=== PATIENT | male | born 1970 | race Caucasian/White ===

== ENCOUNTER → 2016-06-14 | Outpatient (CLI) | payer BC ==
[~2016-06-14] MED LIST: Carafate PO; PRLSR20 PO; VLT500 PO
--- NOTE | 2016-06-15 05:50 | PAP/PSG TECHNICIAN REPORT ---
[facility] [employer] Ride F[employer] Collector Polysomnogram Report Study name: None Report date: 06/15/2016 Study date: 06/14/2016 Referring Physician: Nithya Jeffrey M.D. Name: GRACE OLSON Marcos Interpreting Physician: Naz Jeffrey M.D. Date of : 1970 Second Ride Fare Collector: CARLOS Kumar. Sex: Male Age: 45 StudyType: PSG PAP Weight: 281 lbs Height: 45 years, Height 6' 1" Neck Circum: 18.5inches BMI: 37.07 Medications: Lexapro 10mg Patient History Study started on room air with CPAP +7 (he wanted to start higher because at home he starts at 5 and he said he feels it is too low) in room #8. 45 yr old male here tonight for a new titration study. He had a HST that had an DANNY of 34.9. He has been using auto CPAP at home for 30 days with a nasal mask. His ESS=13/24. Neck circ=18.5inches. Parameters Monitored NPSG: E1-M2, E2-M1, Fp1-M2, Fp2-M1, F3-M2, F4-M2, F4-M1, C3-M2, C4-M2, C4-M1, O1-M2, O2-M2, O2-M1, T3-M2, T4-M1, P3-M2, P4-M1, CHIN1, CHIN2, HR, EKG, Legs, PFLOW, SNOR, FLOW, CFLOW, Tidal Volume, THOR, ABDO, SpO2, PLTH, CPRESS, ETCO2 Wave, ETCO2, pH Sleep Architecture Sleep Stages Time at Lights Off 10:15:30 PM STAGES Time (min.) TST (%) Time at Lights On 5:30:30 AM Wake 146.5 -- Total Recording Time (TRT) 435.00 min. N1 30.0 10 Total Sleep Period (TSP) 379.0 min. N2 129.5 45 Total Sleep Time (TST) 288.5min. N3 61.0 21 Awake Time 146.5 min. REM 68.0 24 Wake after Sleep Onset 90.5 min. Sleep Efficiency (SE) 66 % Sleep Onset Latency (KATELIN) 56.0 min. Number of Stage 1 Shifts None Awakenings 25 Stage Changes 99 Number of REM periods 11 REM 68.0 24 REM Latency 197.5 min. NREM 220.5 76 Body Position Analysis Supine Right Left Side Prone Vertical Total Sleep Time (min.) 105.9 153.9 85.0 238.88 0.0 0.0 Total Sleep Time (%) 17% 53% 29% 83 0% N/A% Total Sleep Time REM (min.) 22.5 44.5 1.0 None 0.0 0.0 Total Sleep Time NREM (min.) 27.1 109.4 84.0 None 0.0 0.0 Intermittent Wake (min.) 56.3 50.7 39.5 None 0.0 0.0 Total Sleep Period (%) 23% None None None None None Arousals Myoclonus (PLM) * Events Count Index Events Count Index Spontaneous 17 4 Events Awake (PLMW) 234 95.8 Respiratory 5 1.5 Events Asleep w/ Arousal (PLMA) 18 3.7 PLM 17 4 Events Asleep w/o Arousal (PLMS) 89 18.5 Snoring 6 1 Total Asleep 107 22.3 Total 45 9 Total 341 47 Respiratory Analysis * CA OA MA CH H RERA Total Count 0 0 0 0 23 0 23 Index 0.0 0.0 0.0 0 4.8 0 4.8 Mean Duration 0.0 0.0 0.0 0.00 23.6 0.0 23.6 Longest Duration 0.0 0.0 0.0 0.00 0.0 0.0 50.4 Respiratory Event Summary Total Supine ~Supine Right Left Prone REM NREM Apneas Count 0 0 0 0 0 N/A 0 0 Index 0.0 0 0 0.0 0.0 N/A 0 0 Hypopneas (4% Desat) Count 23 14 9 8 1 N/A 9 14 Index 4.8 16.9 2 3.1 0.7 N/A 7.9 3.8 Apneas & All Hypopneas Count 23 14 9 8 1 N/A 9 14 Index 4.8 17 2 3 1 N/A 7.9 3.8 Respiratory Events (Barking Machine Feeder+All Hyp+RERA) Count 23 14 9 8 1 N/A 9 14 Index 4.8 17 2 3.1 0.7 N/A 7.9 3.8 Respiratory Related Arousal Count 5 14 4 4 0 N/A 2 5 Index 1.5 4 1 2 0 N/A 2 1 Snoring Analysis Supine Right Left Prone REM NREM Total Snore duration 2.9 min Snores count 52 51 8 N/A 7 104 111 Snore mean duration 1.6 Sec Snores index 63 20 6 N/A 6.2 28.3 23.1 TST with snoring (%) 1.0% Desaturation Event Summary: Minimum %SpO2 Event Count Mean/Min/Max Duration(sec.) Desaturation Index % Time In Bed > 90 82 22.2 / 6.8 / 53.3 11.5 98.4 86 - 90 1 14.8 / 14.8 / 14.8 8.8 1.6 81 - 85 0 N/A 0.0 0.0 76 - 80 0 N/A 0.0 0.0 71 - 75 0 N/A 0.0 0.0 66 - 70 0 N/A 0.0 0.0 61 - 65 0 N/A 0.0 0.0 56 - 60 0 N/A 0.0 0.0 51 - 55 0 N/A 0.0 0.0 < 50 0 N/A 0.0 0.0 Total REM NREM Awake <50% 0.0 min. 0.0 min. 0.0 min. 0.0 min. 51 - 60% 0.0 min. 0.0 min. 0.0 min. 0.0 min. 61 - 70% 0.0 min. 0.0 min. 0.0 min. 0.0 min. 71 - 80% 0.0 min. 0.0 min. 0.0 min. 0.0 min. 81 - 90% 6.8 min. 2.3 min. 2.2 min. 2.3 min. 91 - 100% 427.0 min. 65.7 min. 218.3 min. 143.0 min. Average 94 94 94 94 Minimum SpO2 87 89 87 88 Desaturation Event Index 11.3 8.8 5.7 20.9 # Desat. Events below 89% 6 N/A 3 3 Time(%) with Saturation below 89% 0.2 0.0 0.1 0.0 Time(min.) with Saturation below 89% 0.7 0.0 0.5 0.1 Time (mins) REM (mins) NREM (mins) % of TST SpO2 Below 90% 17 7 N10 0.5 SpO2 Below 88% 1 0 0 0 Heart Rate Analysis Min (bpm) Max (bpm) Average (bpm) Awake 45 127 61 NREM 44 75 57 REM 45 69 56 Overall 44 75 57 Supplemental O2 Values Minimum O2 level: None Value Start Time End Time Second Ride Fare Collector Comments Mr. Olson slept in the right, left and supine positions. Cardiac arrhythmia and PLM's were noted, please see print outs. His restless legs were bothering him so much that at 12:20am he took an OTC RLS medication that he had with him. No bruxism noted. CPAP was initiated at +7 CMH2O and up-titrated to an optimal level of +04HAA2F, which nearly eliminated all respiratory events and snoring. He did however have a long REM period at the end of the study and the leak was high and mouth breathing was audible. His own Mirage FX nasal mask was used during titration but he was given and encouraged to try a medium Quattro Air full face mask by [employer]. He did not use the restroom during the night. He stated that he slept worse than when at home. The final report will be interpreted and signed by a sleep physician. The completed physician report will then be placed in the patient medical record. Therapy Event: Therapy (cm H20) 7 8 9 10 Total Time at Pressure (min.) 158.9 88.8 14.0 173.4 TST at Pressure (min.) 37.9 81.3 12.5 156.9 # Periods 1 1 1 1 Sleep Onset (min.) 56.0 0.0 0.0 0.0 REM Onset (min.) N/A N/A 5.9 0.4 Sleep Efficiency % 23 91 89 90 Wakefulness (%) 76.2 8.4 10.7 9.5 Wakefulness (min.) 121.0 7.5 1.5 16.5 NREM 1 (%) 5.9 9.2 15.2 6.0 NREM 1 (min.) 9.4 8.1 2.1 10.4 NREM 2 (%) 13.5 48.0 24.1 35.8 NREM 2 (min.) 21.5 42.6 3.4 62.0 NREM 3 (%) 4.4 34.4 0.0 13.6 NREM 3 (min.) 7.0 30.5 0.0 23.5 REM (%) 0.0 0.0 50.0 35.2 REM (min.) 0.0 0.0 7.0 61.0 # Arousals 18 10 2 15 Arousal Index 28.5 7.4 9.6 5.7 # Snore 31 50 12 18 Snore Index 49.1 36.9 57.6 6.9 AHI 6.3 5.2 24.0 2.7 AHI Supine 0.0 33.5 24.0 4.9 AHI Non-Supine 6.4 0.0 N/A 2.3 NREM AHI 6.3 5.2 21.8 0.6 REM AHI N/A N/A 25.7 5.9 RDI 6.3 5.2 24.0 2.7 # Obstructive 0 0 0 0 # Central Ap 0 0 0 0 # Mixed 0 0 0 0 # Hypopneas 4 7 5 7 RERAS 0 0 0 0 Total Respiratory Events 4 7 5 7 Time Below SpO2 89.00% (min.) 0.0 0.5 0.0 0.0 Mean NREM SpO2 (%) 94 93 93 94 Mean REM SpO2 (%) N/A N/A 92 94 Mean Sleep SpO2 (%) 94 93 93 94 Min NREM SpO2 (%) 90 87 90 90 Min REM SpO2 (%) N/A N/A 89 89 Position Supine (min.) 0.3 12.5 12.5 24.3 Position Non-supine (min.) 37.6 68.7 0.0 132.5 LM Index Sleep 84.0 11.1 24.0 13.0 LM Index NREM 84.0 11.1 43.7 2.5 LM Index REM N/A N/A 8.6 29.5 Mean Heart Rate (bpm) 62 59 61 55 Min Heart Rate (bpm) 52 50 53 44
--- NOTE | 2016-06-23 07:26 | POLYSOMNOGRAPH REPORT ---
CPAP TITRATION STUDY REFERRING PERSON: Dr. Jeffrey Jeffrey. [employer] OPERATOR: Amee Alcantara. Mr. Bauman is a 45-year-old male sent for CPAP titration study. He had a home sleep test which showed an DANNY of 34.9. He has been using an auto titrating CPAP at home, but he is sent to the lab to ensure adequate treatment of sleep disordered breathing and hypoxemia with therapy. His [place] sleepiness scale score on the evening of this study is 13. BMI is 37.07. Following the technical and digital specifications of the [place] [employer] (AASM) a standard diagnostic polysomnogram was performed monitoring EEG, EOG, EMG (chin and leg deviations), oxygen saturation, body position, digital video, respiratory effort and airflow. The sleep Stage and event scoring was based on the AASM Manual for the Scoring of Sleep and Associated Events 2007 edition. Apneas are defined as a drop in the peak thermal sensor excursion by >90% of baseline for at least 10 seconds. Hypopneas were scored using the 4% oxygen desaturation rule (4A-Medic[employer]) and a decrease in the nasal pressure excursions by >30% of baseline for at least 10 seconds. Respiratory effort-related arousal (RERA's) is defined as a sequence of breaths lasting at least 10 seconds characterized by increasing respiratory effort or flattening of the nasal pressure waveform leading to an arousal from sleep when the sequence of breaths does not meet criteria for an apnea or hypopnea. Apnea Hypopnea index (AHI) is defined as the number of apneas and hypopneas occurring in an hour of sleep. Respiratory disturbance index (RDI) is defined as the number of apneas, hypopneas, and RERA's occurring in an hour of sleep. Mr. Bauman's total sleep period time was 379 minutes. Total sleep time was 277.5 minutes. Sleep efficiency was 66%. Latency to sleep onset was 56 minutes with wake after sleep onset of 90.5 minutes. Total non-REM sleep time was 220.5 minutes. He spent 10% of that time in N1 sleep, 45% in N2 sleep and 21% in N3 sleep. REM latency was 197.5 minutes. Total REM sleep time was 68 minutes or 24% of total sleep time. There were 45 cortical arousals from sleep. Six of these arousals were due to snoring, 2017 due to periodic limb movements, 5 were due to respiratory events, and 17 were spontaneous. There were 107 periodic limb movements noted on this test. Limb movement index was 22.3. Limb movement with arousal index was 3.7. There were no central, obstructive or mixed apneas on this titration. There were 23 hypopnea. Apnea-hypopnea index was 4.8. 111 snoring events were recorded. Total sleep time with snoring was 1%. Mean saturation was 94%. Saturations were less than 89% for only 0.7 minutes of recorded time. There was no cardiac ectopy noted on this study. Very occasional PACs were noted. Heart rates ranged from a low of 44 beats per minute to a high of 75 beats per minute. As stated above, this was a CPAP titration study. This study was started on a CPAP pressure of 7 and he was titrated to a CPAP pressure of 10 over the course of the night. He did have a long period of REM toward the end of the study; however, leak was high. He was using his own Mirage FX nasal mask for the titration, but he was given and encouraged to try a medium Quattro Air full facemask by [facility] because of this. He was observed on a pressure of 10 for 156.9 minutes of sleep time. 61 of those minutes were spent in REM sleep and there was supine REM sleep. AHI and RDI on this pressure were both 2.7 and saturations were less than 89% for no sleep time. IMPRESSION AND PLAN: Successful CPAP titration study in this patient with known obstructive sleep apnea. I would recommend that he be started on CPAP at a pressure of 10. This eliminates his apnea as well as his nocturnal hypoxemia. He did have 107 periodic limb movements on this study; only 3.7 per hour resulted in arousals.
== END | disposition home or self-care (01) ==
LOC: C.NEUR 20:00
PROVIDERS: ATTEND Family Medicine
DX: G47.33 Obstructive sleep apnea (adult) (pediatric) (principal); R09.02 Hypoxemia

== ENCOUNTER 2017-06-14 06:57 | Day surgery (SDC) | payer BC ==
[2017-06-10 15:25] VITALS: BMI 37.0
[~2017-06-14] VITALS: Ht 185.4 cm; Wt 127.3 kg
[~2017-06-14 06:57] MED LIST changes: +CLINDAMYCIN IV 900 MG in DEXTROSE 5% 50ML 44 ML IV SCH; -Carafate PO; +ESCI1TAB10 PO; +IBUP-1050 PO; -PRLSR20 PO; -VLT500 PO
[2017-06-14 07:16] VITALS: BP 137/75; PULSE 70; TEMP 36.8; O2SAT 96; Ht 185.4 cm; Wt 127.3 kg
[2017-06-14] MEDS ORDERED: MIDAZOLAM HCL 1 MG/ML 2ML VIAL ONE (07:26)
[2017-06-14] MEDS ORDERED: FENTANYL CITRATE INJ 50 MCG/1 ML 2 ML VIAL ONE ×2 (07:26→09:32)
[2017-06-14] MEDS ORDERED: ONDANSETRON INJ 2 MG/ML 2 ML VIAL ONE (08:15)
[2017-06-14] MEDS ORDERED: PROPOFOL IV EMULSION 10 MG/ML 20 ML VIAL IV ONE (08:15)
[2017-06-14] MEDS ORDERED: LIDOCAINE HCL 2% 2 ML VIAL (20MG/ML) ONE (08:15)
[2017-06-14] MEDS ORDERED: DEXAMETHASONE SOD INJ 4 MG/ML VIAL ONE (08:15)
[2017-06-14] MEDS ORDERED: EpHEDrine SULFATE INJ 50 MG/ML AMP IV PRN (08:30)
[2017-06-14] MEDS ORDERED: ONDANSETRON INJ 2 MG/ML 2 ML VIAL IV PRN ×2 (08:30→10:15)
[2017-06-14] MEDS ORDERED: ATROPINE SULFATE 0.1 MG/ML 5ML SYR IV PRN (08:30)
--- NOTE | 2017-06-14 08:45 | History & Physical Bridge Note ---
H&P Re-Evaluation Bridge Note: I have examined the patient, reviewed the History & Physical and in the interval since the performance of the History & Physical I have noted the following changes of clinical significance: No changes noted
[2017-06-14] MEDS ORDERED: BACITRACIN OINT 15 GM TUBE ONE (08:52)
[2017-06-14] MEDS ORDERED: BUPIVACAINE 0.5 % 5 MG/1 ML MPF 30ML VIAL ONE (08:52)
[2017-06-14] MEDS ORDERED: LIDOCAINE HCL 1% 20 ML VIAL ONE (08:52)
[2017-06-14] MEDS ORDERED: CLINDAMYCIN IV 600 MG in DEXTROSE 5% 50ML 50 ML IV ONE (09:00)
[2017-06-14] MEDS ORDERED: PHENYLEPHRINE 100MCG/ML 5ML SYR ONE (09:33)
[2017-06-14] MEDS ORDERED: EpHEDrine SULFATE 50MG/5ML SYR ONE (09:33)
--- NOTE | 2017-06-14 09:57 | [facility] Post Operative Brief Note ---
Immediate Operative Summary Operative Date Jun 14, 2017. Pre-Operative Diagnosis left inguinal hernia Post-Operative Diagnosis left inguinal hernia Procedure(s) Performed open repair left inguinal hernia with mesh Surgeon Bonnie Ayers MD Floor Attendant Surgeon(s) JHONNY Pineda Estimated Blood Loss 5 ml Findings Consistent with Post-Op Diagnosis left indirct inguinal hernia Fluids (cc crystalloids) 1200ml Specimens none Drains None Anesthesia Type General Complication(s) none Disposition Accompanied Pt To Recover: yes Disposition: Recovery Room / PACU
[2017-06-14] MEDS ORDERED: TRAMADOL HCL 50 MG TAB PO PRN (10:15)
[2017-06-14] MEDS ORDERED: IBUPROFEN 600 MG TAB PO PRN (10:15)
[2017-06-14] MEDS ORDERED: TRAM-10 PO (10:17)
--- NOTE | 2017-06-14 10:23 | Discharge Instructions ---
Discharge Instructions Date of Service Jun 14, 2017. Admission Reason for Admission: Left Inguinal Hernia Discharge Discharge Diagnosis / Problem: same Discharge Goals Goal(s): Decrease discomfort, Improve function Activity Recommendations Activity Limitations: per Instructions/Follow-up section No heavy lifting over 10 pounds for 4-6 weeks No strenuous activity until cleared by surgeon No submerging incisions underwater for 2 weeks (no bathing, swimming, or hot tubs) No driving while taking narcotic pain medication or until you are pain free . Instructions / Follow-Up Instructions / Follow-Up You may shower in 4 days. sponge bath and wash hair in meantime. Keep dressing clean and dry. After 4 days, remove outer dressing. Leave steri strips on incision for 7 days and then remove. Walking and light activity is encouraged to prevent blood clots from forming in legs. You will be given prescription for Tramadol as needed for moderate to severe pain. You may take extra strength Ibuprofen as needed for mild pain. Follow-up in surgical office in 2 weeks or as scheduled, please call office at [phone] if you do not already have an appointment. Current Hospital Diet Patient's current hospital diet: Discharge Diet Recommended Diet: Regular Diet Procedures Procedures Performed: open repair left inguinal hernia with mesh Pending Studies Studies pending at discharge: no Medical Emergencies . Who to Call and When: Medical Emergencies: If at any time you feel your situation is an emergency, please call 911 immediately. . Non-Emergent Contact Non-Emergency issues call your: Primary Care Provider, Surgeon Call Non-Emergent contact if: you have a fever, temperature is above 101, your pain is not controlled, your pain is worsening, your pain is unusual for you, wound has increased drainage, wound has increased redness, wound has increased pain . "Provider Documentation" section prepared by Rosio Santamaria. . [place] Drug Monitoring Program Search Results: patient reviewed within database, no issues identified
[2017-06-14] MEDS: FENTANYL CITRATE INJ 50 MCG/1 ML 2 ML VIAL IV PRN ×2 (10:25→10:30)
--- NOTE | 2017-06-14 11:01 | OPERATIVE REPORT ---
DATE OF OPERATION: 06/14/2017 PREOPERATIVE DIAGNOSES: Left inguinal hernia. POSTOPERATIVE DIAGNOSIS: Same. OPERATION: Open repair, left inguinal hernia with mesh. SURGEON: Bonnie Ayers MD. MANAGER CARDIOVASCULAR: Rosio Santamaria PA-C. ANESTHESIA: General. ESTIMATED BLOOD LOSS: About 5 mL. FINDINGS: Left indirect inguinal hernia. COMPLICATIONS: None. INDICATIONS FOR THE PROCEDURE: This is a 46-year-old gentleman who presented with symptomatic left inguinal hernia. The patient will be required to do open repair, left inguinal hernia with mesh. I did talk to the patient about the benefit and risk, alternate procedure. I indicated the risks may include but not limited such as bleeding, infection, hernia recurrence, chronic incision pain, may need more procedure, DVT, myocardial infarction and even . The patient understands. He signed informed consent and I answered all questions. DETAILS OF PROCEDURE: We brought the patient to the OR, put the patient in the supine position. The patient received SCD on bilateral legs to prevent DVT. Also, patient received 600 mg of clindamycin IV for prophylactic antibiotic. The patient received general anesthesia without difficulty. Abdomen and the lower pelvic area was prepped and draped in routine sterile fashion. After a timeout, I injected local anesthesia by using 1% lidocaine mixed with 0.5% Marcaine on the left inguinal area. Then I made about a 4 cm incision on the left inguinal area and opened the skin, subcutaneous layer and the external oblique. Mobilized the hernia sac and cord structure, put a Federica in. Then I mobilized the hernia sac and found the patient had indirect hernia. Then we reduced the hernia sac back to the abdominal cavity that showed a large plug to block the hernia sac. Then I used a 3 x 5 cm mesh to reinforce the posterior wall by using 2-0 Prolene mesh to the inguinal ligament, continuing running for latter and medially we used 2-0 Prolene mesh to conjoined tendon continuous running, 2 suture meeting together, tied at the mesh and sat nicely. During the procedure we identified the nerve was protected all the time. Hemostasis was obtained. I then closed the external oblique by using 2-0 Vicryl continuous running and closed subcutaneous layer by using 2-0 Vicryl continuous running, closed skin by using 4-0 Vicryl continuous running. We put the dressing on. The patient tolerated the procedure well. All the instrument, needle and sponge count were correct x2 at the end of case. The patient transferred to recovery room in stable condition. I attest to the content of the Intraoperative Record and any orders documented therein. Any exceptions are noted below. MTDD
--- NOTE | 2017-06-14 11:02 | Anesthesiology Progress Note ---
Anesthesia Post Op Note Date & Time Jun 14, 2017 at 11:02 Vital Signs Pain Intensity: 3 Vital Signs Past 12 Hours Date Time Temp Pulse Resp B/P (MAP) Pulse Ox O2 Delivery O2 Flow Rate FiO2 06/14/17 10:50 36.2 83 16 113/77 97 Room Air 06/14/17 10:40 83 18 143/77 96 Room Air 06/14/17 10:30 83 20 118/78 96 Room Air 06/14/17 10:20 87 20 128/75 98 Oxymask 3 06/14/17 10:13 36.1 91 20 146/84 99 Oxymask 5 06/14/17 07:16 36.8 70 20 137/75 (95) 96 Room Air Notes Mental Status: alert / awake / arousable, participated in evaluation Pt Amnestic to Procedure: Yes Nausea / Vomiting: adequately controlled Pain: adequately controlled Airway Patency, RR, SpO2: stable & adequate BP & HR: stable & adequate Hydration State: stable & adequate Anesthetic Complications: no major complications apparent
[2017-06-14 11:06] VITALS: BP 154/63; PULSE 74; TEMP 36.9; O2SAT 97
[2017-06-14 11:30] VITALS: BP 152/67; PULSE 74; TEMP 36.9; O2SAT 96
[2017-06-14] MEDS ORDERED: TRAMADOL HCL 50 MG TAB ONE (11:42)
[2017-06-14] MEDS ORDERED: NURSING VERBAL MED ORDER ONE (11:45)
[2017-06-14 12:05] VITALS: BP 143/79; PULSE 75; TEMP 36.7; O2SAT 94
== END 2017-06-14 12:07 | disposition home or self-care (01) ==
LOC: C.ACU 06:57
PROVIDERS: ATTEND Surgery
DX: K40.90 Unilateral inguinal hernia, without obstruction or gangrene, not specified as recurrent (principal); I10 Essential (primary) hypertension; F17.200 Nicotine dependence, unspecified, uncomplicated; E66.9 Obesity, unspecified; Z68.38 Body mass index [BMI] 38.0-38.9, adult; G47.33 Obstructive sleep apnea (adult) (pediatric); Z98.890 Other specified postprocedural states; Z90.89 Acquired absence of other organs; Z85.6 Personal history of leukemia; Z83.3 Family history of diabetes mellitus; Z80.6 Family history of leukemia

== ENCOUNTER 2022-03-16 06:18 | Observation (INO) ==
--- NOTE | 2022-03-10 11:02 | Anesthesiology Consultation ---
Date of Service March 10, 2022 Assessment & Plan (1) Encounter for pre-operative examination: Plan - PCP clearance 03/06/22 [facility]: "...pre-operative medical clearance at the request of TAMMY Gutierrez. Planned Surgery: Date: 03/06/22. Planned anesthesia: c-spine fusion at [facility]...has obstructive sleep apnea which is likely his largest risk factor surgery but relatively minimal...no medical contraindication for the proposed surgery and anesthesia..." - COVID screening: Per blueprint reproducer on 03/10/2022: Travel screen negative, no known COVID-19 positive contacts or current COVID-19 related symptoms in past 2 weeks. To surgeon's discretion if preop COVID testing is needed. Chart Review Chart Review: Acceptable Risk for Surgery and Patient NOT seen in Pre Admission Testing History Surgery Operation Date: 03/16/22 12:25 Proposed Procedures p C6-C7 Anterior Cervical Discectomy and Fusion, Spinal cord Monitoring - Shay Moran, Height/Weight Height: 6 ft 1 in Weight: 121.109 kg Allergies Allergy/AdvReac Type Severity Reaction Status Date / Time cefepime Allergy Intermediate RASH Verified 03/10/22 10:26 Medications Home Medications Medication Instructions Recorded Confirmed Last Taken escitalopram oxalate 20 mg tablet 20 mg PO QAM 01/14/18 03/10/22 02/03/18 04:00 ibuprofen 800 mg tablet 800 mg PO TID PRN Pain 01/14/18 03/10/22 Unknown Past Medical History Medical History (Updated 03/10/22 @ 10:45 by Bonnie Hatch, FLORENTINO) Anxiety Cancer HAIRY CELL LEUKEMIA - CURRENTLY IN REMISSION; LAST TREATMENT JUNE 2014 GERD (gastroesophageal reflux disease) History of COVID-19 2020 LOSS OF TASTE AND SMELL, FATIGUE, NO HOSPITALIZATION, NO CURRENT ISSUES HTN (hypertension) H/O states resolved Hx of fracture STATES "ALL KINDS" Hx of pancreatitis WAS SEEN IN [facility] ED - 10/2017 OR 11/2017 Hx of pilonidal cyst SURGICAL INTERVENTION AJ (obstructive sleep apnea) CPAP Past Family History Family History (Updated 03/10/22 @ 10:45 by Bonnie Hatch, FLORENTINO) Other No family history of adverse response to anesthesia Past Surgical History Surgical History (Updated 03/10/22 @ 11:01 by Maite M. Onink, PA-C) History of appendectomy History of colonoscopy History of open reduction and internal fixation (ORIF) procedure LEFT ARM Hx of arthroscopic knee surgery left and right Hx of hernia repair 02/03/18: Grade 2 view, MAC 4, ETT 7.5. Social History Smoking Status: Current some day smoker tobacco type: cigarettes Smoking cigarettes per day: 3-4 PER DAY- ADVISED Do You Dip or Chew Tobacco: No Hx Alcohol Use: Yes Alcohol type: beer alcohol intake frequency: a few times a week Hx Substance Use: Yes (SMOKES DAILY- ADVISED) substance use type: marijuana Lab Results Anesthesia Preop Results Results Anesthesia Widget: WBC 5.74 K/ul (4.8-10.8) 02/06/22 Hgb 16.4 g/dl (14.0-18.0) 02/06/22 Hct 48.0 % (40.1-51.0) 02/06/22 Plt 164 K/uL (130-400) 02/06/22 Na 138 mmol/L (136-145) 02/06/22 K 4.3 mmol/L (3.5-5.1) 02/06/22 Cl 106 mmol/L (98-107) 02/06/22 CO2 26 mmol/L (21-32) 02/06/22 BUN 18 mg/dl (6-23) 02/06/22 Creat 0.99 mg/dl (0.6-1.4) 02/06/22 Glucose Level 91 mg/dl (70-99(Fasting)) 02/06/22 PT 10.5 Seconds (9.0-12.0) 02/06/22 PTT 26.8 Seconds (21.0-31.0) 02/06/22 INR 1.0 (0.9-1.1) 02/06/22 Urine Color Yellow 02/06/22 Urine Appearance Clear (Clear) 02/06/22 Urine pH 6.0 (4.5-7.5) 02/06/22 Urine Specific Sarver 1.024 (1.000-1.030) 02/06/22 Urine Protein Negative (Negative) 02/06/22 Urine Glucose (UA) Negative (Negative) 02/06/22 Urine Ketones Negative (Negative) 02/06/22 Urine Blood Negative (Negative) 02/06/22 Urine Nitrite Negative (Negative) 02/06/22 Urine Bilirubin Negative (Negative) 02/06/22 Urine Urobilinogen Negative (Negative) 02/06/22 Urine Leukocyte Esterase Negative (Negative) 02/06/22 Testing Electrocardiogram Date: 02/06/22 Sinus bradycardia, rate 51 bpm Left axis deviation Chest X-Ray Date: 02/06/22 No lines and tubes are seen. The cardiomediastinal silhouette is normal. The lungs are clear. No evidence of pleural effusion or pneumothorax. IMPRESSION: No acute chest disease
[~2022-03-16 06:18] MED LIST changes: +ACETAMINOPHEN 500 MG TAB PO SCH; -CLINDAMYCIN IV 900 MG in DEXTROSE 5% 50ML 44 ML IV SCH; +CeleBREX 200 MG CAP PO SCH; -ESCI1TAB10 PO; -IBUP-1050 PO; +LR 15ML/HR IV SCH
[2022-03-16] MEDS: GABAPENTIN 900 MG DOSE PO SCH ×2 (07:01)
[2022-03-16] MEDS ORDERED: DEXAMETHASONE SOD INJ 4 MG/ML VIAL ONE (07:14)
[2022-03-16] MEDS ORDERED: ONDANSETRON INJ 2 MG/ML 2 ML VIAL ONE (07:14)
[2022-03-16] MEDS ORDERED: PROPOFOL IV EMULSION 10 MG/ML 20 ML VIAL IV ONE ×3 (07:14→08:36)
[2022-03-16] MEDS ORDERED: fentaNYL citrate 100 MCG/2 ML VIAL ONE (07:14)
[2022-03-16] MEDS ORDERED: LIDOCAINE 2% MPF LOCAL 5 ML VIAL INFIL ONE (07:14)
[2022-03-16] MEDS ORDERED: MIDAZOLAM HCL 1 MG/ML 2ML VIAL ONE (07:14)
[2022-03-16] MEDS ORDERED: ONDANSETRON INJ 2 MG/ML 2 ML VIAL IV PRN ×2 (07:16→12:32)
[2022-03-16] MEDS ORDERED: ePHEDrine sulfate 50 MG/ML AMP IV PRN (07:16)
[2022-03-16] MEDS ORDERED: ATROPINE SULFATE 0.1 MG/ML 10ML SYR IV PRN (07:16)
[2022-03-16] MEDS ORDERED: ceFAZolin 330 MG/ML 1 GM VIAL ONE (07:21)
--- NOTE | 2022-03-16 07:40 | History & Physical Bridge Note ---
Date of Service March 16, 2022 History & Physical Bridge Note I have examined the patient, reviewed the History & Physical and in the interval since the performance of the History & Physical I have noted the following changes of clinical significance: no changes noted
--- NOTE | 2022-03-16 07:41 | History & Physical Report ---
Date of Service March 16, 2022 Assessment & Plan (1) Cervical stenosis of spinal canal: Plan: C6-C7 anterior cervical discectomy and fusion History of Present Illness Chief Complaint: Neck and arm pain Primary Care Provider: Adolph Erickson MD This is a 51-year-old male presents with chronic persistent neck and arm pain after failing course of nonoperative care is here for surgical invention. Allergies Allergy/AdvReac Type Severity Reaction Status Date / Time cefepime Allergy Intermediate RASH Verified 03/16/22 06:38 Home Medications Medication Instructions Recorded Confirmed Type escitalopram oxalate 20 mg tablet 20 mg PO QAM 01/14/18 03/16/22 History (Lexapro) ibuprofen 800 mg tablet 800 mg PO TID PRN Pain 01/14/18 03/16/22 History Past Med/Surg History Medical History (Updated 03/16/22 @ 07:40 by Shay Moran DO) Anxiety Cancer HAIRY CELL LEUKEMIA - CURRENTLY IN REMISSION; LAST TREATMENT JUNE 2014 GERD (gastroesophageal reflux disease) History of COVID-19 2019 LOSS OF TASTE AND SMELL, FATIGUE, NO HOSPITALIZATION, NO CURRENT ISSUES HTN (hypertension) H/O states resolved Hx of fracture STATES "ALL KINDS" Hx of pancreatitis WAS SEEN IN [place] [facility] - 10/2017 OR 11/2017 Hx of pilonidal cyst SURGICAL INTERVENTION AJ (obstructive sleep apnea) CPAP Surgical History History of appendectomy History of colonoscopy History of open reduction and internal fixation (ORIF) procedure LEFT ARM Hx of arthroscopic knee surgery left and right Hx of hernia repair 02/03/18: Grade 2 view, MAC 4, ETT 7.5. 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
[2022-03-16] MEDS ORDERED: HYDROmorphone INJ 2 MG/ML SYR/VIAL ONE (08:07)
[2022-03-16] MEDS ORDERED: ePHEDrine sulfate 50 MG/ML AMP ONE ×2 (08:13→08:36)
[2022-03-16] MEDS ORDERED: KETAMINE 50 MG/5 ML SYRINGE ONE (08:15)
[2022-03-16] MEDS ORDERED: SUCCINYLCHOLINE CHLORIDE 20 MG/ML 10 ML VIAL IV ONE (08:36)
[2022-03-16] MEDS ORDERED: ROCURONIUM BROMIDE 10 MG/ML 5 ML VIAL IV ONE (08:36)
[2022-03-16] MEDS ORDERED: FLOSEAL HEMOSTATIC MATRIX 10ML TOP ONE (08:36)
[2022-03-16] MEDS ORDERED: NEOSTIGMINE METHYLSULFATE 1 MG/ML 10ML VIAL ONE (08:37)
[2022-03-16] MEDS ORDERED: GLYCOPYRROLATE 0.2 MG/ML VIAL ONE (08:37)
--- NOTE | 2022-03-16 09:23 | Operative Report ---
Post Operative Report Pre & Post Diagnosis Operation Date: 03/16/22 07:45 Pre-Op Diagnosis: Cervical spinal stenosis with radiculopathy Post-Op Diagnosis: Same I identified the patient and participated in the time-out.: Yes Procedure Operation Date: 03/16/22 07:45 Actual Procedures #1 anterior cervical discectomy with bilateral foraminotomies C6-C7. #2 anterior cervical arthrodesis C6-C7. #3 placement of 10 mm spiral cage filled I factor C6-C7. #4 placement of K2 M plate and screws across C6-C7. Surgeon Shay Moran, DO Lead Software Test Engineer None Estimated Blood Loss 10 Findings See Below Patient is 6 foot 1 weighing over 122 kg with a BMI in excess of 35. The patient's body habitus did contribute to significant technical difficulty with positioning exposure. This at least 50% increased operative time. Specimens None Indications This is a 51-year-old male presents above-mentioned diagnosis after failed course of nonoperative care is here for surgical invention. Description of Procedure Patient was met with identified informed consent obtained. Patient was then taken to the operative suite underwent a patient placed in a supine position the Kj table at [place] head housekeeper. All bony prominences well-padded eyes inspected to ensure no external pressure placed upon the. This point the anterior cervical spine was prepped and draped in a sterile fashion. The assistance of fluoroscopy identified the C 67 disc base and a transverse incision was placed along the right anterior aspect of the cervical spine overlying this region. Blunt dissection with assistance of bipolar Cardizem performed down to and exposing the anterior cervical spine at C6-C7. Self- retaining retractors placed. Then performed a complete discectomy out to the uncovertebral joints bilaterally. [place] distracting pins utilized to assist in visualization. Removed all posterior annular fibers longitudinal ligament bilateral foraminotomies performed to address all stenosis. Endplate burred to subcortical being bone and a 10 mm spiral cage with I factor tapped in position. Distracting apparatus was removed and K2 M plate and screws applied with assistance of fluoroscopy. The incision was then copiously irrigated explored to ensure no damage to surrounding structures or remaining bleeding. 10 round SOTERO drain inserted. The incision was then closed with 2 Vicryl in the fascia and 4 Monocryl for final skin closure. Steri-Strips dressings placed. Patient awakened taken to PACU in stable condition. Please note spinal cord monitoring was utilized at the procedure no changes noted. I attest to the content of the Intraoperative Record and any orders documented therein. Any exceptions are noted below.
[2022-03-16] MEDS: fentaNYL citrate 100 MCG/2 ML VIAL IV PRN ×4 (10:11→10:26)
--- NOTE | 2022-03-16 10:49 | Fluoroscopy Report ---
FL cervical 2-3V HISTORY: 51 years-old Male C6-C7 ACDF COMPARISON: None TECHNIQUE: 4 spot fluoroscopic images of the cervical spine were obtained utilizing 32.8 seconds fluo roscopy time. FINDINGS: Endotracheal tube. Suboptimal exam secondary to positioning the lateral view. Anterior plate and scre w lower cervical spine fusion hardware is not well visualized on lateral view. On the frontal project ion this appears to be at the C6-C7 level, however exact numbering is not confirmed secondary to limi tations as above. Images were submitted after completion of the surgery. IMPRESSION: Fluoroscopic assistance as above. ACT 112: Negative or not required by law. The above report was generated using voice recognition software. It may contain grammatical, syntax o r spelling errors. Electronically signed by: Wesley Retana M.D. 03/16/2022 10:48 AM
[2022-03-16] MEDS: HYDROmorphone INJ 2 MG/ML SYR/VIAL IV PRN ×2 (11:07→11:12)
[2022-03-16] MEDS ORDERED: HYDROmorphone INJ 1 MG/ML SYRINGE ONE (11:07)
[2022-03-16] MEDS ORDERED: RACEPINEPHRINE 2.25% NEBU SOLN 0.5 ML VIAL INH PRN (12:32)
[2022-03-16] MEDS ORDERED: ALUMINUM/MAGNESIUM SUSP 30 ML UDC PO PRN (12:32)
[2022-03-16] MEDS ORDERED: MAGNESIUM HYDROXIDE SUSP 30 ML UDC PO PRN (12:32)
[2022-03-16] MEDS ORDERED: bisacodyL 10 MG SUPP PR PRN (12:32)
[2022-03-16] MEDS ORDERED: LORazepam 0.5 MG TAB PO PRN (12:32)
[2022-03-16] MEDS ORDERED: ACETAMINOPHEN 500 MG TAB PO PRN (12:32)
[2022-03-16] MEDS ORDERED: DO NOT ADMINISTER FLU VACCINE PRN (12:32)
[2022-03-16] MEDS ORDERED: FAMOTIDINE 20 MG TAB PO PRN (12:32)
[2022-03-16] MEDS ORDERED: DO NOT ADMINISTER PNEUMOCOCCAL VACCINE PRN (12:32)
[2022-03-16] MEDS ORDERED: diphenhydrAMINE Capsule 25 MG CAP PO PRN (12:32)
[2022-03-16] MEDS ORDERED: dexAMETHasone 8 MG in SYRINGE 0 ML IV PRN (12:32)
[2022-03-16] MEDS ORDERED: HYDROmorphone INJ 0.5 MG/0.5 ML SYR IV PRN (12:32)
[2022-03-16] MEDS ORDERED: ONDANSETRON 4 MG OD TAB PO PRN (12:32)
[2022-03-16] MEDS ORDERED: NALOXONE HCL 0.4 MG/1 ML VIAL/CARP IV PRN (12:32)
[2022-03-16] MEDS ORDERED: ACETAMINOPHEN 1,000 MG/100 ML VIAL IV PRN (12:32)
[2022-03-16] MEDS ORDERED: SOD PHOSPHATE/SOD BIPHOSPHATE ENEMA 132 ML BTL PR PRN (12:32)
[2022-03-16] MEDS ORDERED: PROMETHAZINE HCL 12.5 MG in SODIUM CHLORIDE 0.9% 50 ML IV PRN (12:32)
[2022-03-16] MEDS ORDERED: METOCLOPRAMIDE HCL INJ 5 MG/ML 2 ML VIAL IV PRN (12:32)
[2022-03-16] MEDS ORDERED: hydrOXYzine HCl 25 MG TAB PO PRN (12:32)
[2022-03-16] MEDS ORDERED: LORazepam 2 MG/1 ML VIAL IV PRN (12:32)
[2022-03-16] MEDS: traMADol HCL 50 MG TABLET PO PRN ×2 (13:16→20:12)
[2022-03-16] MEDS: LACTATED RINGER'S 1,000 ML IV SCH (13:42)
[2022-03-16] MEDS ORDERED: CLINDAMYCIN/D5W 900 MG/50 ML BAG IV SCH (14:00)
--- NOTE | 2022-03-16 14:28 | Anesthesiology Progress Note ---
Date of Service March 16, 2022 Anesthesia Post Procedure Vital Signs Vital Signs: Temp Pulse Pulse Resp BP Pulse Ox Pulse Ox 03/16/22 14:18 36.6 C 71 16 127/68 96 03/16/22 13:08 16 92 03/16/22 13:10 36.6 C 73 14 129/70 95 03/16/22 12:53 36.8 C 70 14 126/65 95 03/16/22 12:35 36.6 C 75 14 128/69 95 03/16/22 12:32 95 03/16/22 11:35 68 16 136/59 L 94 03/16/22 11:20 88 16 110/59 L 94 03/16/22 11:05 67 15 127/62 94 03/16/22 10:50 36.4 C L 72 17 129/62 94 03/16/22 10:40 66 17 120/79 94 03/16/22 10:30 67 18 107/61 94 03/16/22 10:20 65 18 119/73 93 03/16/22 10:10 68 15 112/54 L 96 03/16/22 10:00 72 18 138/59 L 96 03/16/22 09:50 71 18 117/53 L 94 03/16/22 09:40 36.4 C L 80 18 161/88 H 97 03/16/22 06:43 36.6 C 60 18 147/90 H 95 03/16/22 06:43 O2 Del Method O2 Del Method O2 Flow Rate 03/16/22 14:18 Room Air 03/16/22 13:08 Room Air 03/16/22 13:10 Room Air 03/16/22 12:53 Room Air 03/16/22 12:35 Room Air 03/16/22 12:32 Room Air 03/16/22 11:35 Nasal Cannula 3 03/16/22 11:20 Nasal Cannula 3 03/16/22 11:05 Nasal Cannula 3 03/16/22 10:50 Nasal Cannula 3 03/16/22 10:40 Nasal Cannula 3 03/16/22 10:30 Nasal Cannula 3 03/16/22 10:20 Nasal Cannula 3 03/16/22 10:10 Nasal Cannula 3 03/16/22 10:00 Oxymask 5 03/16/22 09:50 Oxymask 5 03/16/22 09:40 Oxymask 5 03/16/22 06:43 Room Air 03/16/22 06:43 CPAP Pain Intensity Right Arm: Pain Intensity: 3 Transfer of Care Handoff Completed per policy Notes Mental Status: alert / awake / arousable and participated in evaluation Patient Amnestic to Procedure: Yes Nausea / Vomiting: adequately controlled Pain: adequately controlled Airway Patency, RR, SpO2: stable & adequate BP & HR: stable & adequate Hydration State: stable & adequate Anesthetic Complications: no major complications apparent and Pt Satisfied with anesthetic care
[2022-03-16] MEDS ORDERED: DOCUSATE SODIUM/SENNA 50/8.6MG TAB PO SCH (21:00)
[2022-03-16] MEDS: HYDROmorphone INJ 1 MG/ML SYRINGE IV PRN (22:17)
[2022-03-16] MEDS: oxyCODONE HCL IR 5 MG TAB (IMMEDIATE RELEASE) PO PRN (22:57)
[2022-03-17] MEDS: HYDROmorphone INJ 1 MG/ML SYRINGE IV PRN (03:01)
[2022-03-17] MEDS: oxyCODONE HCL IR 5 MG TAB (IMMEDIATE RELEASE) PO PRN ×2 (05:12→10:57)
[2022-03-17] MEDS ORDERED: POLYETHYLENE (MIRALAX) 17 GM PACK PO SCH (06:00)
[2022-03-17] MEDS: LACTATED RINGER'S 1,000 ML IV SCH (07:15)
[2022-03-17] MEDS: traMADol HCL 50 MG TABLET PO PRN (08:07)
[2022-03-17] MEDS ORDERED: ESCITALOPRAM OXALATE 20 MG TAB PO SCH (09:00)
[2022-03-17] MEDS ORDERED: dexAMETHasone 6 MG in SYRINGE 0 ML IV SCH (09:00)
--- NOTE | 2022-03-17 09:51 | Discharge Summary ---
Date of Service March 17, 2022 Admission HPI Per Admitting Provider This is a 51-year-old male presents with chronic persistent neck and arm pain after failing course of nonoperative care is here for surgical invention. Principal Diagnosis Cervical spinal stenosis with radiculopathy Discharge Data Allergies Allergy/AdvReac Type Severity Reaction Status Date / Time cefepime Allergy Intermediate RASH Verified 03/16/22 06:38 Procedures Performed Operation Date: 03/16/22 07:45 Actual Procedures p C6-C7 Anterior Cervical Discectomy and Fusion, Spinal cord Monitoring(Not Applicable) - Shay Moran DO Ordered Studies 03/16/22 [place] cervical 2-3V Routine Hospital Course (1) Cervical stenosis of spinal canal: Patient 1 anterior cervical discectomy and fusion [place] posting orthopedic for postoperative. Postop day 1 he was swallowing well. No hoarseness. No neck pain. But still struggling with arm pain. He has trialed Neurontin in the past without improvement. Subsequently placed him on Lyrica. We will allow him to discharge home today. Discharge orders instructions on the chart for further review. Total Time Total Time Spent Total Time Spent (In Minutes): 20 minutes Discharge Plan Discharge Items Patient Disposition: Home - Self-Care Reason For Visit: Spondylosis without Myelopathy Radiculopathy, Cerv Discharge Diagnosis: Cervical spinal stenosis with radiculopathy Activity: As commented below Non-emergency contact: Primary Care Provider Call non-emergency contact if: you have any medication questions Follow-up/Referrals: Adolph Erickson MD [Primary Care Provider] - Diet: Regular Addtl Attending Provider Instructions: ACTIVITY RECOMMENDATIONS: SELF CARE INSTRUCTIONS AFTER CERVICAL FUSIONS 1. No smoking. Smoking drastically decreases the chance of a solid fusion. 2. No bending, lifting more than 5 pounds, or twisting (roll like a log when turning in bed). 3. You may shower 3 days after surgery. Thoroughly dry wound. Do not soak in the tub. 4. Cervical collar: Must be worn at all times including sleeping. You may remove the brace only to bath, eat and if you are sitting in a recliner. 5. Please walk as much as you can for exercise. Gradually increase the distance that you walk as your endurance increases. SPECIAL CARE INSTRUCTIONS: VERY IMPORTANT TO READ AND REVIEW A. Do not take any anti-inflammatory medications (i.e. Indocin, Advil, Aspirin, Naprosyn, Aleve, Motrin, etc.) as these may inhibit the chance of a solid fusion. Tylenol is okay to take. B. Your surgical incision has been closed with a cosmetic suture under the skin that will dissolve in about 6 weeks. In 14 days, you can use a pair of clean scissors and cut the suture that is left outside of the skin at the ends of your incision. C. Complications are uncommon, but please contact us if you have any signs or symptoms of: 1. wound infection (fever higher than 102.5 degrees F, redness, separation of wound, drainage, or increasing pain from the incision) 2. blood clots in legs (pain, swelling, redness and warmth in legs) 3. urinary tract infection (fever higher than 102.5 degrees, burning upon urination or increased frequency of urination) 4. nerve problems (inability to walk on your toes or heels, numbness, loss of bowel or bladder control) 5. any other symptoms that concern you. D. Please call the office at if you have any concerns or questions about your operation or recovery. MANAGING PAIN AFTER SPINAL SURGERY 1. Narcotic medication is intended for short-term use and will be provided for surgical pain. Surgical pain usually lasts for a period of 4-6 weeks. Narcotic medication includes Percocet, Vicodin, Darvocet, Tylenol #3 or Lortab. 2. Longer-term pain is more appropriately treated with non-narcotic medication such as Tylenol ES. 3. Muscle spasm is not appropriately treated with narcotics. Muscle relaxers such as Soma, Flexeril or Skelaxin can be used along with Tylenol ES. 4. Remember that we all live with some "aches and pains". This is not unusual or uncommon after an injury or as we get older. 5. We will provide appropriate medication within the normal guidelines of their prescribed use. We will also be very cautious and aware of potential abuse and extended duration of patients' medication needs. 6. Please allow 2-3 days to process refills. Prescriptions will not be mailed but must be picked up at the office. FOLLOW UP VISIT: Keep your scheduled follow-up appointment. Any questions, please call the office at . Pending Studies at Discharge: No Stand-Alone Forms: [facility], Smoking Cessation Medications and DC Order Prescriptions: New tramadol 50 mg tablet 50 mg PO Q6H PRN (Reason: pain, moderate) Qty: 30 0RF oxycodone 5 mg tablet 5 mg PO Q6H PRN (Reason: pain, severe) Qty: 30 0RF pregabalin [Lyrica] 50 mg Capsule 50 mg PO BID Qty: 60 1RF Continued escitalopram oxalate [Lexapro] 20 mg Tablet 20 mg PO QAM diphenoxylate-atropine 2.5-0.025 mg tablet 2 tab QID PRN (Reason: Diarrhea) Discontinued ibuprofen 800 mg Tablet 800 mg PO TID PRN (Reason: Pain) Label Comments: 1 week ago Discharge Orders: Discharge Order (Routine); Ordered 03/17/22 Ordered By: Shay Moran Admission Data Admit Date/Time: 03/16/22 09:26 Attending Provider: Shay Moran Admit Provider: Shay Moran Primary Care Provider: Adolph Erickson
[2022-03-17] MEDS ORDERED: PREGABALIN 50 MG CAP PO SCH (21:00)
== END 2022-03-17 11:24 | disposition home or self-care (01) ==
LOC: ASU 06:18 → INTOOBSV 09:26 → 3E 09:26
DX: Z79.899 Other long term (current) drug therapy; M48.02 Spinal stenosis, cervical region; F17.210 Nicotine dependence, cigarettes, uncomplicated; M54.12 Radiculopathy, cervical region; C91.41 Hairy cell leukemia, in remission; Z88.2 Allergy status to sulfonamides